=== PATIENT | female | born 1985 | race Caucasian/White ===

== ENCOUNTER 2016-06-30 19:23 | Emergency (ER) | payer OTHER ==
[~2016-06-30] VITALS: Ht 165.1 cm; Wt 70.3 kg
[~2016-06-30 19:23] MED LIST: IBUP-974 PO; TYL3 PO
[2016-06-30 19:41] VITALS: BP 131/70
--- NOTE | 2016-06-30 21:17 | NUR ---
PATIENT LEFT WITHOUT BEING SEEN BY DR. ESPINOZA. NO FURTHER CARE PROVIDED FOR PATIENT.
== END 2016-06-30 21:17 | disposition left against medical advice (07) ==
LOC: MED 19:23
DX: R10.9 Unspecified abdominal pain (principal); Z53.21 Procedure and treatment not carried out due to patient leaving prior to being seen by health care provider
CPT/HCPCS: 81025

== ENCOUNTER 2017-07-11 22:23 | Emergency (ER) | payer OTHER ==
[~2017-07-11] VITALS: Ht 162.6 cm; Wt 68.7 kg
[2017-07-11 22:24] VITALS: BP 141/92
--- NOTE | 2017-07-11 22:27 | NUR ---
PT ASSISTED BACK TO LOBBY
--- NOTE | 2017-07-11 23:27 | NUR ---
PT AMBULATED TO ER BED 1
--- NOTE | 2017-07-11 23:27 | NUR ---
Dr. Cerrato evaluating patient at bedside.
[2017-07-12] MEDS ORDERED: NACL 0.9% 1,000 ML IV SCH (00:07)
[2017-07-12] MEDS ORDERED: MORPHINE SULFATE 4 MG/ML SYR IVP ONE (00:10)
[2017-07-12] MEDS ORDERED: ONDANSETRON 4 MG/2 ML VIAL IVP ONE (00:10)
[2017-07-12] MEDS ORDERED: FAMOTIDINE 20 MG TAB PO ONE (00:10)
[2017-07-12] MEDS ORDERED: KETOROLAC 30 MG/ML VIAL IVP ONE (00:10)
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
[2017-07-12 00:32] LABS: BASOPHILS % (AUTO) 0.8 % (0.0-2.0); EOSINOPHILS # (AUTO) 0.1 K/uL (0-0.4); EOSINOPHILS % (AUTO) 1.4 % (0.0-4.0); HEMATOCRIT 28.5 % (36-48); HEMOGLOBIN 8.8 g/dL (12.0-16.0); LYMPHOCYTES # (AUTO) 1.7 K/uL (2.5-16.5); LYMPHOCYTES % (AUTO) 29.1 % (20.5-51.1); MEAN CORPUSCULAR HEMOGLOBIN 21 pg (27-31); MEAN CORPUSCULAR HGB CONC 31 g/dL (33-37); MEAN CORPUSCULAR VOLUME 68.3 fL (80-94); MONOCYTES # (AUTO) 0.6 K/uL (0.8-1.0); MONOCYTES % (AUTO) 10.1 % (1.7-9.3); NEUTROPHILS # (AUTO) 3.4 K/uL (1.8-7.7); NEUTROPHILS % (AUTO) 58.6 % (42.2-75.2); PLATELET COUNT (AUTO) 272 K/uL (140-450); RED BLOOD CELL COUNT(AUTO) 4.18 MIL/uL (4.20-5.40); RED CELL DISTRIBUTION WIDTH 15.8 % (11.6-13.7); WHITE BLOOD COUNT (AUTO) 5.8 K/uL (4.8-10.8)
[2017-07-12 00:34] LABS: APPEARANCE,URINE TURBID (CLEAR); BILIRUBIN,URINE 1+ (NEGATIVE); BLOOD, URINE 3+ (NEGATIVE); COLOR,URINE YELLOW (YELLOW); LEUKOCYTE ESTERASE ,URINE NEGATIVE (NEGATIVE); NITRITE, URINE NEGATIVE (NEGATIVE); UGLUCOSE NEGATIVE (NEGATIVE)
[2017-07-12 00:39] LABS: CARBON DIOXIDE 26.5 mmol/L (21-32); CREATININE 0.6 mg/dL (0.6-1.3); POTASSIUM 3.5 mmol/L (3.5-5.1)
[2017-07-12 00:45] LABS: ALBUMIN 3.2 g/dL (3.4-5.0); TOTAL BILIRUBIN 0.2 mg/dL (0.0-1.0)
[2017-07-12 00:52] LABS: RBC,URINE TOO NUMEROUS TO COUN /HPF (0-5); URINE AMORPHOUS URATE 4+ /HPF (None Seen); WBC,URINE 0-5 (RARE) /HPF (0-5)
--- NOTE | 2017-07-12 02:00 | NUR ---
PT IN BED SLEEPING, VSS.
--- NOTE | 2017-07-12 03:20 | NUR ---
PT IN BED SLEEPING, VSS, ER MADE AWARE OF PT STATUS. PT BOYFRIEND LEFT NUMBER FOR WHEN PT IS D/C HE WILL BE HER RIDE HOME, [place] [phone]
[2017-07-12 06:15] VITALS: BP 123/56
== END 2017-07-12 06:17 | disposition home or self-care (01) ==
LOC: MED 22:23
DX: R10.13 Epigastric pain (principal); R31.9 Hematuria, unspecified; N18.2 Chronic kidney disease, stage 2 (mild); R11.2 Nausea with vomiting, unspecified; R19.7 Diarrhea, unspecified; Z90.49 Acquired absence of other specified parts of digestive tract
CPT/HCPCS: 36415; 74176; 76830; 80053; 81001; 81025; 83690; 85025; 96361; 96374; 96375; 99285; J1885; J2405; J7030; J2270

== ENCOUNTER 2017-12-18 14:50 | Emergency (ER) | payer SELFPAY ==
[~2017-12-18] VITALS: Ht 162.6 cm; Wt 65.8 kg
[2017-12-18 15:05] VITALS: BP 110/69
--- NOTE | 2017-12-18 15:09 | NUR ---
PT AMBULATES W/ STEADY GAIT TO LOBBY TO WAIT FOR AN AVAILABLE BED W/ VSS.
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
--- NOTE | 2017-12-18 15:30 | NUR ---
PT AMBULATES TO BED 12
[2017-12-18 16:52] VITALS: BP 112/68
--- NOTE | 2017-12-18 16:52 | NUR ---
Patient discharged with v/s stable. Written and verbal after care instructions given and explained. Patient alert, oriented and verbalized understanding of instructions. Ambulatory with steady gait. All questions addressed prior to discharge. ID band removed. Patient advised to follow up with PMD. Rx of KETOROLAC 0.5% OPTHALMIC SOLUTION , OFLOXACIN 0.3 % OPTHALMIC SOLUTION given. Patient educated on indication of medication including possible reaction and side effects. Opportunity to ask questions provided and answered.
== END 2017-12-18 16:52 | disposition home or self-care (01) ==
LOC: MED 14:50
DX: H10.13 Acute atopic conjunctivitis, bilateral (principal); H01.006 Unspecified blepharitis left eye, unspecified eyelid; H01.003 Unspecified blepharitis right eye, unspecified eyelid; Z79.899 Other long term (current) drug therapy
CPT/HCPCS: 99283

== ENCOUNTER 2020-09-18 18:30 | Observation (INO) | payer OTHER, SELFPAY ==
[~2020-09-18] VITALS: Ht 165.1 cm; Wt 72.6 kg
[~2020-09-18 18:30] MED LIST changes: +ACET-503 PO; -TYL3 PO
[2020-09-18 19:15] VITALS: BP 109/68
--- NOTE | 2020-09-18 19:18 | NUR ---
to lobby a/w bed via wheelchair
--- NOTE | 2020-09-18 19:24 | NUR ---
seen and examined by MYLA.
[2020-09-18] MEDS ORDERED: MORPHINE SULFATE 4 MG/ML SYR IVP ONE (19:30)
[2020-09-18] MEDS ORDERED: NACL 0.9% 1,000 ML IV ONE (19:30)
[2020-09-18] MEDS ORDERED: ONDANSETRON 4 MG/2 ML VIAL IVP ONE (19:30)
--- NOTE | 2020-09-18 19:45 | NUR ---
TO ER BED 6
[2020-09-18 20:02] LABS: BASOPHILS % (AUTO) 0.4 % (0.0-2.0); EOSINOPHILS % (AUTO) 0.3 % (0.0-4.0); HEMATOCRIT 38.6 % (36-48); HEMOGLOBIN 12.9 g/dL (12.0-16.0); LYMPHOCYTES # (AUTO) 1.3 K/uL (2.5-16.5); LYMPHOCYTES % (AUTO) 11.4 % (20.5-51.1); MEAN CORPUSCULAR HEMOGLOBIN 28 pg (27-31); MEAN CORPUSCULAR HGB CONC 33 g/dL (33-37); MEAN CORPUSCULAR VOLUME 85.1 fL (80-94); MONOCYTES # (AUTO) 0.9 K/uL (0.8-1.0); MONOCYTES % (AUTO) 8.5 % (1.7-9.3); NEUTROPHILS # (AUTO) 8.8 K/uL (1.8-7.7); NEUTROPHILS % (AUTO) 79.4 % (42.2-75.2); PLATELET COUNT (AUTO) 292 K/uL (140-450); RED BLOOD CELL COUNT(AUTO) 4.54 MIL/uL (4.20-5.40); RED CELL DISTRIBUTION WIDTH 14.2 % (11.6-13.7); WHITE BLOOD COUNT (AUTO) 11.1 K/uL (4.8-10.8)
--- NOTE | 2020-09-18 20:10 | NUR ---
35 YO/F BIB SELF W CO RLQ ABDOMINAL PAIN SHARP 10/10 RADIATING TO R LEG THAT WORSENS W MOVEMENT. PATIENT ALSO REPORTS NAUSEA. PATIENT DENIES FEVER, V/D. BOWEL SOUNDS PRESENT THROUGHOUT. ABDOMEN TENDER TO TOUCH. PATIENT CONNECTED TO MONITOR W VSS. PATIENT LAYING IN BED LOCKED IN LOWEST POSITION X1 SIDERAIL UP. BREATHING EVEN AND UNLABORED. WILL CONTINUE TO MONITOR. PMH:ASTHMA, HTN NKA
[2020-09-18 20:23] LABS: ALBUMIN 3.6 g/dL (3.4-5.0); ANION GAP 13.1 (8-16); CARBON DIOXIDE 25.4 mmol/L (21-32); CREATININE 0.8 mg/dL (0.6-1.3); POTASSIUM 3.5 mmol/L (3.5-5.1); TOTAL BILIRUBIN 0.8 mg/dL (0.0-1.0)
[2020-09-18 20:47] LABS: BILIRUBIN,URINE NEGATIVE (NEGATIVE); BLOOD, URINE 3+ (NEGATIVE); COLOR,URINE BROWN (YELLOW); LEUKOCYTE ESTERASE ,URINE 2+ (NEGATIVE); NITRITE, URINE POSITIVE (NEGATIVE); UGLUCOSE NEGATIVE (NEGATIVE)
[2020-09-18 20:56] LABS: APPEARANCE,URINE HAZY (CLEAR)
[2020-09-18 21:08] LABS: RBC,URINE 11-20 (MOD) /HPF (0-5); WBC,URINE 60-80 /HPF (0-5)
[2020-09-18] MEDS ORDERED: cefTRIAXone 1,000 MG VIAL ONE (22:09)
[2020-09-18] MEDS ORDERED: IBUP-2213 PO (22:12)
[2020-09-18] MEDS ORDERED: ACET-2619 PO (22:12)
[2020-09-18] MEDS ORDERED: CEPH-588 PO (22:12)
[2020-09-18] MEDS ORDERED: ONDA-24 PO (22:12)
--- NOTE | 2020-09-18 22:13 | NUR ---
PATIENT LAYING IN BED ON HER PHONE. BREATHING EVEN AND UNLABORED. X1 SIDERAIL UP, BED LOCKED IN LOWEST POSITION. VSS. NAD NOTED, WILL CONTINUE TO MONITOR.
--- NOTE | 2020-09-19 | NUR ---
PATIENT LAYING IN BED W EYES CLOSED, BREATHING EVEN AND UNLABORED. X1 SIDERAIL UP, BED LOCKED IN LOWEST POSITION. VSS.
[2020-09-19] MEDS ORDERED: ACETAMINOPHEN 325 MG TAB PO PRN (00:50)
[2020-09-19] MEDS ORDERED: HYDROcodone/APAP 5/325 MG 1 TAB TAB PO PRN (00:50)
[2020-09-19] MEDS: NACL 0.9% 1,000 ML IV SCH ×3 (01:39→16:55)
--- NOTE | 2020-09-19 02:08 | NUR ---
REPORT CALLED TO [facility] CM FOR TRANSFER OF PATIENT CARE.
--- NOTE | 2020-09-19 02:17 | NUR ---
Patient will be admitted to care of DR SPENCER. Admited to MED/SURG. Will go to room 126A. Belongings list completed. Report to [facility] CM.
[2020-09-19 02:30] VITALS: BP 120/77
[2020-09-19] MEDS: MORPHINE SULFATE 4 MG/ML SYR IVP PRN ×3 (02:48→14:34)
--- NOTE | 2020-09-19 03:00 | NUR ---
RECEIVED REPORT FOR CONTINUITY OF CARE FROM ER NURSE. PT IN BED SHE IS AOX4 WITH C/O OF 8/10 PAIN IN ABDOMEN. PT BROUGHT UP BY SPENCER TO ROOM 126A. FLUIDS RUNNING ORDERED. MRSA SWAB DONE, ALL ORDERED PRECAUTIONS IN PLACE. V/S FOLLOWS: T 98.6 P 85 R 18 B/P 107/64 023 99% ON ROOM AIR.
[2020-09-19] MEDS: metroNIDAZOLE 500 MG/NS PREMIX 100 ML IV SCH ×3 (05:00→21:00)
--- NOTE | 2020-09-19 07:20 | NUR ---
NURSE REPORT Report obtained from night nurse Sara and this nurse assumed care of patient. Received patient asleep at beginning of shift. No sxs of pain or distress.
[2020-09-19 08:00] VITALS: BP 118/64
--- NOTE | 2020-09-19 10:00 | NUR ---
NURSE CARE MEDICATED FOR PAIN AT 0921 WITH MORPHINE 4 MG WITH RELIEF OF PAIN. NPO FOR APPY.
[2020-09-19] MEDS ORDERED: BUPIVACAINE-MPF/EPI 0.25% 30 ML VIAL INJ ONE (11:42)
--- NOTE | 2020-09-19 14:34 | NUR ---
NURSE CARE MEDICATED FOR PAIN WITH MORPHINE 4 MG IVP WITH RELIEF.
[2020-09-19] MEDS ORDERED: PROPOFOL 200 MG/20 ML VIAL IV ONE (15:15)
[2020-09-19] MEDS ORDERED: ROCURONIUM 50 MG/5 ML VIAL IV ONE (15:15)
[2020-09-19] MEDS ORDERED: LIDOCAINE MPF 2% 100 MG/5 ML VIAL INJ ONE (15:15)
[2020-09-19] MEDS ORDERED: SUCCINYLCHOLINE CHLORIDE 200 MG/10 ML VIAL IVP ONE (15:15)
--- NOTE | 2020-09-19 15:15 | NUR ---
NURSE CARE DR BHAT IN TO SEE PATIENT AND ASSESS AND EXAMINE PATIENT. EXPLAINED THE SURGICAL PROCEDURE TO THE PATIENT. PATIENT VERBALIZED UNDERSTANDINGS AND THIS NURSE WITNESS PATIENT SIGNING CONSENT.
[2020-09-19] MEDS ORDERED: fentaNYL citrate 0.05 MG/ML VIAL ONE (15:16)
[2020-09-19] MEDS ORDERED: MEPERIDINE 25 MG/ML SYR ONE (15:43)
[2020-09-19] MEDS ORDERED: SEVOFLURANE 250 ML BTL INH ONE (15:47)
--- NOTE | 2020-09-19 16:00 | NUR ---
NURSE NOTES PATIENT TO OR VIA BED. NO C/O PAIN OR DISCOMFORT.
[2020-09-19] MEDS ORDERED: ONDANSETRON 4 MG/2 ML VIAL IVP PRN (16:50)
[2020-09-19] MEDS ORDERED: METOCLOPRAMIDE 10 MG/2 ML INJ VIAL ONE (17:02)
[2020-09-19] MEDS ORDERED: NEOSTIGMINE 1:1000 10 MG/10 ML VIAL ONE (17:02)
[2020-09-19] MEDS ORDERED: ONDANSETRON 4 MG/2 ML VIAL ONE (17:02)
[2020-09-19] MEDS ORDERED: KETOROLAC 30 MG/ML VIAL ONE (17:02)
[2020-09-19] MEDS ORDERED: GLYCOPYRROLATE 0.2 MG/ML VIAL ONE (17:02)
[2020-09-19] MEDS ORDERED: DEXAMETHASONE 4 MG/ML VIAL ONE (17:03)
--- NOTE | 2020-09-19 17:30 | NUR ---
POST-OP NOTES Patient returned from recovery room and LR infusing. Asleep and no distress noted. VS 97.5-80, 20, BP 117/75. Siderails x 4 elevated and call light within reach. 3 lap site CDI with dermabond
[2020-09-19] MEDS: LACTATED RINGERS 1,000 ML IV SCH (17:40)
--- NOTE | 2020-09-19 19:45 | NUR ---
NURSE REPORT Report given to night nurse Rizwana and endorse care to her. LR infusing and change to NS. Report to Rizwana that IV tubing needs to be changed since need IV pump tubing. Patient had no c/o pain when saw her at 1845 sleeping.
[2020-09-19 21:10] VITALS: BP 110/71
[2020-09-20] MEDS: LACTATED RINGERS 1,000 ML IV SCH ×2 (02:00→10:20)
[2020-09-20 04:00] VITALS: BP 96/58
[2020-09-20] MEDS: metroNIDAZOLE 500 MG/NS PREMIX 100 ML IV SCH ×3 (05:27→21:00)
[2020-09-20 06:11] LABS: BASOPHILS % (AUTO) 0.1 % (0.0-2.0); HEMATOCRIT 31.6 % (36-48); HEMOGLOBIN 10.6 g/dL (12.0-16.0); LYMPHOCYTES # (AUTO) 0.8 K/uL (2.5-16.5); LYMPHOCYTES % (AUTO) 7.9 % (20.5-51.1); MEAN CORPUSCULAR HEMOGLOBIN 29 pg (27-31); MEAN CORPUSCULAR HGB CONC 34 g/dL (33-37); MEAN CORPUSCULAR VOLUME 86.5 fL (80-94); MONOCYTES # (AUTO) 0.8 K/uL (0.8-1.0); MONOCYTES % (AUTO) 7.5 % (1.7-9.3); NEUTROPHILS # (AUTO) 8.8 K/uL (1.8-7.7); NEUTROPHILS % (AUTO) 84.5 % (42.2-75.2); PLATELET COUNT (AUTO) 252 K/uL (140-450); RED BLOOD CELL COUNT(AUTO) 3.65 MIL/uL (4.20-5.40); RED CELL DISTRIBUTION WIDTH 14.5 % (11.6-13.7); WHITE BLOOD COUNT (AUTO) 10.5 K/uL (4.8-10.8)
[2020-09-20 06:22] LABS: ANION GAP 13.6 (8-16); CARBON DIOXIDE 24.4 mmol/L (21-32); CREATININE 0.6 mg/dL (0.6-1.3)
[2020-09-20 08:00] VITALS: BP 109/69
--- NOTE | 2020-09-20 08:00 | NUR ---
NURSE REPORT WASN'T GIVEN BY NIGHT NURSE. NEEDED TO LOOK UP INFO IN OTHER REPORT. RECIEVED PATIENT AT 0720 AND SLEEPING WITHOUT ANY SXS OF PAIN OR DISTRESS.
--- NOTE | 2020-09-20 09:08 | NUR ---
PATIENT HAS BEEN SCREENED AND CATEGORIZED LOW NUTRITION RISK. PATIENT WILL BE SEEN WITHIN 7 DAYS OF ADMISSION. 09/26/[address]
[2020-09-20] MEDS: MORPHINE SULFATE 4 MG/ML SYR IVP PRN ×2 (09:39→15:45)
[2020-09-20] MEDS: NACL 0.9% 1,000 ML IV SCH ×2 (09:40→15:16)
[2020-09-20 16:00] VITALS: BP 115/70
--- NOTE | 2020-09-20 17:50 | NUR ---
NURSE CARE DR SPENCER WAS CALLED AND TOLD THAT PATIENT IS STILL HAVING ALOT OF PAIN FROM [facility]. THERE IS A DISCHARGE ORDER. PATIENT WANTED TO GO HOME TODAY AND HE STATED TO GIVE HER A COUPLE MORE HOURS TO DECIDE IF SHE IS ABLE TO GO HOME.
--- NOTE | 2020-09-20 20:30 | NUR ---
NURSE REPORT REPORT AND ENDDORSEMENT GIVEN TO NIGHT NURSE VADIM TO ASSUME CARE OF PATIENT. THIS PATIENT HAS A DISCHARGE FOR HOME AND DR WHITLEY IS AWARE THAT THE PATIEHT DOESN'T WANT TO GO HOME, SINCE THE PAIN IS SEVERE AND NEED MORPHINE IVP. SHE STATES THE NORCO DOESN'T WORK. SHE ALSO C/O BEING SOB , BUT WHEN HER CAME SHE STATES SHE IS FINE.
--- NOTE | 2020-09-21 03:46 | NUR ---
t [id number] on [id number] pt galdino eubanks metalizing supervisor accompaied her
--- NOTE | 2020-09-24 15:54 | NUR ---
infusion complete 6 on 09/20/2020
== END 2020-09-20 23:00 | disposition left against medical advice (07) ==
LOC: MED 18:30 → MMU 09-19 00:52 → UNDOADMIN 09-19 00:52 → MMU 09-19 00:52
PROVIDERS: ADMIT Hospitalist; ATTEND Hospitalist
DX: K35.80 Unspecified acute appendicitis (principal); N39.0 Urinary tract infection, site not specified; Z20.822 Contact with and (suspected) exposure to COVID-19; F17.210 Nicotine dependence, cigarettes, uncomplicated; E66.3 Overweight; Z68.26 Body mass index [BMI] 26.0-26.9, adult; Z79.899 Other long term (current) drug therapy
CPT/HCPCS: 36415; 44970; 74177; 80048; 80053; 81001; 83690; 84703; 85025; 85610; 85730; 86886; 86900; 86901; 87081; 87086; 87426; 88304; 96361; 96365; 96366; 96367; 96368; 96375; 96376; 99285; G0378; J0330; J0696; J1100; J1885; J2001; J2175; J2270; J2405; J2704; J2710; J2765; J3010; J3490; J7030; J7060; Q9967

== ENCOUNTER 2022-03-28 22:13 | Emergency (ER) | payer OTHER ==
[~2022-03-28] VITALS: Ht 162.6 cm; Wt 72.6 kg
[~2022-03-28 22:13] MED LIST changes: +ACET-2619 PO; +ACET-9525 PO; +DOXY-690 PO; +IBUP-2213 PO; -IBUP-974 PO; +METR-435 PO
[2022-03-28 22:40] VITALS: BP 143/93
--- NOTE | 2022-03-28 22:43 | NUR ---
TO LOBBY A/W BED AMBULATORY
--- NOTE | 2022-03-28 23:14 | NUR ---
FACIAL SWELLING , TOOTHACHE TODAY, BOTH FOOT SWELLING FOR 2 WEEKS
--- NOTE | 2022-03-28 23:35 | NUR ---
Dr. Hartman examining patient.
[2022-03-28] MEDS ORDERED: AMOX-1230 PO (23:46)
[2022-03-28] MEDS ORDERED: IBUP-2213 PO (23:46)
--- NOTE | 2022-03-29 | NUR ---
Patient discharged with v/s stable. Written and verbal after care instructions given and explained. Patient alert, oriented and verbalized understanding of instructions. Ambulatory with steady gait. All questions addressed prior to discharge. ID band removed. Patient advised to follow up with PMD. Rx of amox clav, ibuprofen given. Patient educated on indication of medication including possible reaction and side effects. Opportunity to ask questions provided and answered.
[2022-03-29 00:02] VITALS: BP 143/93
== END 2022-03-29 | disposition home or self-care (01) ==
LOC: MED 22:13
DX: K04.7 Periapical abscess without sinus (principal); M79.89 Other specified soft tissue disorders; J45.909 Unspecified asthma, uncomplicated; I10 Essential (primary) hypertension; Z79.899 Other long term (current) drug therapy
CPT/HCPCS: 99283

== ENCOUNTER 2022-12-15 01:20 | Emergency (ER) | payer OTHER ==
[~2022-12-15] VITALS: Ht 162.6 cm; Wt 77.1 kg
[~2022-12-15 01:20] MED LIST changes: +AMOX-1230 PO
[2022-12-15 01:27] VITALS: BP 126/79; PULSE 90; RESP 16; TEMP 97.1; O2SAT 98
[2022-12-15] MEDS ORDERED: cephALEXin 500 MG CAP PO ONE (03:10)
[2022-12-15] MEDS ORDERED: CEPH-588 PO (03:20)
[2022-12-15] MEDS ORDERED: IBUP-2218 PO (03:20)
== END 2022-12-15 03:23 | disposition home or self-care (01) ==
LOC: MED 01:20
DX: L03.115 Cellulitis of right lower limb (principal); J45.909 Unspecified asthma, uncomplicated; I10 Essential (primary) hypertension; Z79.899 Other long term (current) drug therapy; Z79.1 Long term (current) use of non-steroidal anti-inflammatories (NSAID); Z79.2 Long term (current) use of antibiotics
CPT/HCPCS: 99284

== ENCOUNTER 2023-04-08 01:43 | Emergency (ER) | payer OTHER ==
[~2023-04-08] VITALS: Ht 162.6 cm; Wt 74.8 kg
[~2023-04-08 01:43] MED LIST changes: +CEPH-588 PO; +IBUP-2218 PO
[2023-04-08 02:53] VITALS: BP 121/103; PULSE 114; RESP 24; TEMP 98.3; O2SAT 100
== END 2023-04-08 03:23 | disposition left against medical advice (07) ==
LOC: MED 01:43
DX: R10.9 Unspecified abdominal pain (principal); M54.50 Low back pain, unspecified; Z53.21 Procedure and treatment not carried out due to patient leaving prior to being seen by health care provider
CPT/HCPCS: 99281